=== PATIENT | male | born 1970 | race Caucasian/White ===

== ENCOUNTER 2018-04-30 12:26 | Emergency (ER) | payer MEDICARE ==
[~2018-04-30] VITALS: Ht 172.7 cm; Wt 79.5 kg
[2018-04-30 12:37] VITALS: Ht 172.7 cm; Wt 79.5 kg
[2018-04-30] MEDS ORDERED: CYCLOBENZAPRINE10 MG PO (14:07)
[2018-04-30] MEDS ORDERED: MEDROL DOSE PACK4 MG PO (14:07)
[2018-04-30] MEDS ORDERED: HYDROCODON-ACE1 EAC7 PO (14:07)
[2018-04-30 14:37] VITALS: BP 129/65
== END 2018-04-30 14:39 | disposition home or self-care (01) ==
LOC: D.ER 12:26
DX: S46.912A Strain of unspecified muscle, fascia and tendon at shoulder and upper arm level, left arm, initial encounter (principal); X58.XXXA Exposure to other specified factors, initial encounter; Y93.89 Activity, other specified; Y92.89 Other specified places as the place of occurrence of the external cause; M62.838 Other muscle spasm